=== PATIENT | male | born 1950 | race African-American/Black ===

== ENCOUNTER 2021-12-30 14:13 | Emergency (ER) | payer MEDICARE, OTHER ==
[~2021-12-30] VITALS: Ht 185.4 cm; Wt 87.0 kg
[2021-12-30] MEDS ORDERED: ACETAMINOPHEN 325MG TABLET PO STA (17:06)
[2021-12-30 17:55] LABS: BASOPHILS % 0.3 % (0.0-2.0); HEMATOCRIT. 42.6 % (42.0-52.0); LYMPHOCYTES % 33.7 % (20.0-50.0); MEAN CORPUSCULAR HEMOGLOBIN 32.4 pg (28.0-32.0); MEAN PLATELET VOLUME 9.1 fl (7.4-10.4); MONOCYTES % 12.5 % (2.0-8.0); NEUTROPHILS % 52.5 % (40.0-76.0); PLATELET 261 x1000/uL (130-400); RED BLOOD CELL COUNT 4.63 mill/uL (4.7-6.1); RED CELL DISTRIBUTION WIDTH 13.9 % (11.6-14.6)
[2021-12-30 18:00] LABS: CHLORIDE 88 mEq/L (98-107)
[2021-12-30] MEDS ORDERED: FLUORESCEIN SODIUM 1MG/STRIP BOTHEYE ONE (20:15)
[2021-12-30] MEDS ORDERED: TETRACAINE 0.5% OPHTH DROPS 4ML BOTHEYE ONE (20:15)
[2021-12-30] MEDS ORDERED: ACETAMINOPHEN 325MG TABLET PO NR (20:15)
[2021-12-30 20:48] VITALS: BP 117/73
== END 2021-12-30 21:20 | disposition home or self-care (01) ==
LOC: ER 14:13
DX: R51.9 Headache, unspecified (principal)
CPT/HCPCS: 36415; 80053; 85025; 99283

== ENCOUNTER 2023-11-17 17:41 | Inpatient (IN) | payer MEDICARE, MEDICAID ==
[~2023-11-17] VITALS: Ht 172.7 cm; Wt 83.5 kg
[2023-11-17] MEDS: SODIUM CHLORIDE 0.9% 1,000 ML IV ONE (20:08)
[2023-11-17 20:20] LABS: BASOPHILS % 0.5 % (0.0-2.0); EOSINOPHILS % 0.1 % (0.0-5.0); HEMATOCRIT. 28.1 % (42.0-52.0); HEMOGLOBIN. 9.4 g/dL (14.0-18.0); LYMPHOCYTES % 10.1 % (20.0-50.0); MEAN CORPUSCULAR HEMOGLOBIN 32.2 pg (28.0-32.0); MEAN CORPUSCULAR HGB CONC 33.4 g/dL (31.0-37.0); MEAN CORPUSCULAR VOLUME 96.4 fL (80.0-94.0); MEAN PLATELET VOLUME 7.8 fl (7.4-10.4); MONOCYTES % 6.8 % (2.0-8.0); NEUTROPHILS % 82.5 % (40.0-76.0); PLATELET 160 x1000/uL (130-400); RED BLOOD CELL COUNT 2.92 mill/uL (4.7-6.1); RED CELL DISTRIBUTION WIDTH 15.9 % (11.6-14.6); WHITE BLOOD COUNT 5.6 x1000/uL (4.5-11.0)
[2023-11-17 20:30] LABS: INR 1.3; PROTHROMBIN TIME 13.8 sec (9.6-11.0)
[2023-11-17 20:33] LABS: ALANINE AMINOTRANSFERASE 22 IU/L (10-49); ALBUMIN 3.3 g/dL (3.2-4.8); ASPARTATE AMINOTRANSFERASE 24 IU/L (<34); BILIRUBIN TOTAL 0.6 mg/dL (0.1-1.0); CALCIUM 8.4 mg/dL (8.7-10.4); CARBON DIOXIDE 23 mEq/L (21-32); CHLORIDE 106 mEq/L (98-107); CREATININE 0.5 mg/dL (0.6-1.3); GLUCOSE 138 mg/dL (70-105); PROTEIN TOTAL 6.2 g/dL (6.0-8.3); SODIUM 139 mEq/L (136-145); TROPONIN I HIGH SENSITIVITY 43 ng/L (3.0-53); UREA NITROGEN BLOOD 15 mg/dL (9-23)
[2023-11-17 20:37] LABS: LACTIC ACID 4.4 mmol/L (0.4-2.0)
[2023-11-17 20:38] LABS: POTASSIUM 2.7 mEq/L (3.5-5.1)
[2023-11-17] MEDS: MAGNESIUM 2 G PREMIX 50 ML IV ONE (21:45)
[2023-11-17] MEDS: SODIUM CHLORIDE 0.9% 1000ML BAG (SEPSIS BOLUS) IV ONE (21:45)
[2023-11-17] MEDS: KCL 20MEQ/100ML PREMIX 100 ML IV SCH (23:03)
[2023-11-17] MEDS: PIPERACILLIN/TAZO 3.375G/50ML 50 ML IV SCH (23:03)
[2023-11-18 00:46] VITALS: BP 110/56; PULSE 98; RESP 18; TEMP 97.8
[2023-11-18] MEDS: KCL 20MEQ/100ML PREMIX 100 ML IV SCH (01:43)
[2023-11-18 04:00] VITALS: BP 107/82; PULSE 98; RESP 16; TEMP 96.8
[2023-11-18 05:50] LABS: HEMATOCRIT 26.7 % (42.0-52.0); HEMOGLOBIN 8.9 g/dL (14.0-18.0); MEAN CORPUSCULAR HEMOGLOBIN 31.9 pg (28.0-32.0); MEAN CORPUSCULAR HGB CONC 33.2 g/dL (31.0-37.0); MEAN CORPUSCULAR VOLUME 96.1 fL (80.0-94.0); PLATELET 153 x1000/uL (130-400); RED BLOOD CELL COUNT 2.78 mill/uL (4.7-6.1); WHITE BLOOD COUNT 5.2 x1000/uL (4.5-11.0)
[2023-11-18 05:51] LABS: CALCIUM 8.4 mg/dL (8.7-10.4); CARBON DIOXIDE 24 mEq/L (21-32); CHLORIDE 108 mEq/L (98-107); CREATININE 0.4 mg/dL (0.6-1.3); GLUCOSE 74 mg/dL (70-105); POTASSIUM 3.4 mEq/L (3.5-5.1); SODIUM 140 mEq/L (136-145); UREA NITROGEN BLOOD 14 mg/dL (9-23)
[2023-11-18 08:00] VITALS: BP 117/87; PULSE 100; RESP 20; TEMP 97.9
[2023-11-18] MEDS: ASPIRIN 81MG TABLET PO SCH (08:31)
[2023-11-18 12:00] VITALS: BP 119/78; PULSE 99; RESP 20; TEMP 97.4
[2023-11-18] MEDS ORDERED: ACETAMINOPHEN 325MG TABLET PO PRN ×2 (13:00→13:45)
[2023-11-18] MEDS ORDERED: NALOXONE HCL 0.4MG/ML VIAL IV PRN (13:45)
[2023-11-18 16:00] VITALS: BP 117/86; PULSE 100; RESP 20; TEMP 97.1
[2023-11-18] MEDS: HYDROCODONE/ACETAMINOPHEN 10/325MG TABLET PO PRN (16:46)
[2023-11-18] MEDS ORDERED: POTASSIUM CHLORIDE 20MEQ TABLET SR PO NR (17:45)
[2023-11-18 20:00] VITALS: BP 92/67; PULSE 116; RESP 18; TEMP 98
[2023-11-19] VITALS: BP 100/73; PULSE 116; RESP 17; TEMP 98.7
[2023-11-19 04:00] VITALS: BP 101/78; PULSE 103; RESP 18; TEMP 97.7
[2023-11-19 08:00] VITALS: BP 115/84; PULSE 91; RESP 18; TEMP 98.2
[2023-11-19 12:00] VITALS: BP 110/74; PULSE 111; RESP 18; TEMP 97.6
[2023-11-19 16:00] VITALS: BP 103/73; PULSE 119; RESP 18; TEMP 97.6
[2023-11-19 20:00] VITALS: BP 100/70; PULSE 61; RESP 18; TEMP 98.6
[2023-11-20] VITALS: BP 97/72; PULSE 105; RESP 17; TEMP 98.4
[2023-11-20 04:00] VITALS: BP 95/73; PULSE 109; RESP 20; TEMP 98.1
[2023-11-20 06:08] LABS: CALCIUM 8.1 mg/dL (8.7-10.4); CARBON DIOXIDE 25 mEq/L (21-32); CHLORIDE 104 mEq/L (98-107); CREATININE 0.4 mg/dL (0.6-1.3); GLUCOSE 76 mg/dL (70-105); POTASSIUM 3.3 mEq/L (3.5-5.1); SODIUM 138 mEq/L (136-145); UREA NITROGEN BLOOD 17 mg/dL (9-23)
[2023-11-20 06:27] LABS: BASOPHILS % 0.1 % (0.0-2.0); EOSINOPHILS % 0.1 % (0.0-5.0); HEMOGLOBIN. 9.2 g/dL (14.0-18.0); LYMPHOCYTES % 10.1 % (20.0-50.0); MEAN CORPUSCULAR HEMOGLOBIN 32.2 pg (28.0-32.0); MEAN CORPUSCULAR VOLUME 94.6 fL (80.0-94.0); MEAN PLATELET VOLUME 8.6 fl (7.4-10.4); MONOCYTES % 8.6 % (2.0-8.0); NEUTROPHILS % 81.1 % (40.0-76.0); PLATELET 171 x1000/uL (130-400); RED BLOOD CELL COUNT 2.85 mill/uL (4.7-6.1); RED CELL DISTRIBUTION WIDTH 15.1 % (11.6-14.6); WHITE BLOOD COUNT 5.1 x1000/uL (4.5-11.0)
[2023-11-20 08:00] VITALS: BP 112/80; PULSE 117; RESP 18; TEMP 97.7
[2023-11-20 12:00] VITALS: BP 98/74; PULSE 115; RESP 18; TEMP 98.1
[2023-11-20 16:00] VITALS: BP 100/79; PULSE 110; RESP 18; TEMP 97.6
[2023-11-20 20:00] VITALS: BP 106/78; PULSE 116; RESP 18; TEMP 98.6
[2023-11-21] VITALS (7 sets, daily range): BP systolic 89–111; BP diastolic 58–85; PULSE 70–120; RESP 18–19; TEMP 96.1–98.6
[2023-11-21] MEDS: LIDOCAINE HCL 1% 10 MG/ML 10ML VIAL ONE (08:03)
[2023-11-21] MEDS: SODIUM BICARBONATE 4% (2.4MEQ) 5ML VIAL IV ONE (08:03)
[2023-11-22] VITALS: BP 102/76; PULSE 110; RESP 20; TEMP 97.9
[2023-11-22 04:00] VITALS: BP 98/69; PULSE 100; RESP 19; TEMP 97.9
[2023-11-22 07:30] VITALS: BP 112/70; PULSE 114; RESP 18; TEMP 97.5
[2023-11-22] MEDS: ONDANSETRON HCL 4MG/2ML INJ IV PRN (10:10)
[2023-11-22 12:00] VITALS: BP 112/70; PULSE 107; RESP 18; TEMP 97.6
[2023-11-22 15:04] VITALS: BP 99/69; PULSE 107; TEMP 97.6; O2SAT 96
== END 2023-11-22 16:27 | DRG 435 ==
LOC: ER 17:41 → EDBEDREQ 18:30 → EDBEDREQTM 22:04 → ER 23:24 → 8WST 23:33
PROVIDERS: ADMIT Internal Medicine; ATTEND Internal Medicine
PROC: 0W993ZZ Drainage of Right Pleural Cavity, Percutaneous Approach (ICD-10-PCS; principal; 2023-11-20)
DX: C78.7 Secondary malignant neoplasm of liver and intrahepatic bile duct (principal); J96.00 Acute respiratory failure, unspecified whether with hypoxia or hypercapnia; J91.0 Malignant pleural effusion; E87.6 Hypokalemia; I10 Essential (primary) hypertension; D64.9 Anemia, unspecified; Z82.49 Family history of ischemic heart disease and other diseases of the circulatory system; Z95.0 Presence of cardiac pacemaker; Z86.73 Personal history of transient ischemic attack (TIA), and cerebral infarction without residual deficits
CPT/HCPCS: 32555; 36415; 71045; 71260; 74176; 80048; 80053; 83605; 83735; 84484; 85025; 85027; 93005; 97162; 99291; A6261; J2405; J2543; J3475; J3480; J3490; J7030